=== PATIENT | female | born 1955 | race Caucasian/White ===

== ENCOUNTER 2020-04-01 13:20 | Inpatient (IN) ==
[2020-04-01] MEDS ORDERED: NS 0.9% 1000 ml BAG 1,000 ML IV ONE (14:15)
[2020-04-01 14:41] LABS: ABS Lymphocytes 1.5 10^3/ul (1.0-4.8); ABS Monocytes 0.6 10^3/ul (0-0.8); ABS Neutrophils 7.1 10^3/ul (1.5-7.7); Eosinophil % 0.3 %; Hematocrit 45 % (35-47); Hemoglobin 14.9 g/dL (12.0-16.0); Mean Corpuscular HGB Conc 33 g/dL (31-36); Mean Corpuscular Hemoglobin 29 pg (27-31); Mean Corpuscular Volume 87 fL (80-97); Mean Platelet Volume 7.4 fL (7.4-10.4); Platelet Count 357 10^3/uL (150-450); Red Cell Distribution Width 14 % (10-15); White Blood Count 9.2 10^3/uL (3.5-10.8)
[2020-04-01 15:00] LABS: Albumin 4.2 g/dL (3.2-5.2); Albumin/Globulin Ratio 1.3 (1-3); BUN/Creatinine Ratio 20.8 (8-20); Calcium 9.5 mg/dL (8.6-10.3); EGFR African American 70.4 (>60); EGFR Non-African American 58.1 (>60); Globulin 3.2 g/dL (2-4); Potassium 4.4 mmol/L (3.5-5.0); Total Bilirubin 0.4 mg/dL (0.2-1.0); Total Protein 7.4 g/dL (6.4-8.9)
[2020-04-01 15:01] LABS: Troponin I 0.01 ng/mL (<0.03)
[2020-04-01] MEDS ORDERED: Dexamethasone IV 4 MG/ML 5 ML VIAL (20 MG) IVPB ONE (15:29)
[2020-04-01 15:31] LABS: TSH Ultra Thyroid Stim Horm 1.95 mcIU/mL (0.34-5.60)
[2020-04-01 15:53] LABS: Activated Partial Thrombo Time 26.2 seconds (26.0-38.0); INR 1.07 (0.82-1.09)
[2020-04-01] MEDS ORDERED: levETIRAcetam 1000MG IVPREMIX 1,000 MG/100 ML BAG IVPB ONE (15:55)
[2020-04-01] MEDS ORDERED: Iodixanol (CONTRAST) 320 MG/ML 100 ML SDV IV ONE (21:29)
[2020-04-01] MEDS ORDERED: Gadoteridol (CONTRAST) 279.3 MG/ML 10 ML IV ONE (21:35)
[2020-04-02] MEDS: Dexamethasone IV 4 MG/ML VIAL 1 ml VIAL IV SLOW PU SCH ×5 (01:05→21:06)
[2020-04-02 03:50] LABS: Urine Appearance Clear; Urine Bilirubin Negative (Negative); Urine Blood 1+ (Negative); Urine Color Yellow; Urine Glucose 3+(>=500 mg/dL) (Negative); Urine Ketones Trace (Negative); Urine Nitrite Negative (Negative); Urine Protein Negative (Negative); Urine Specific Gravity 1.024 (1.010-1.030); Urine Urobilinogen Negative (Negative)
[2020-04-02 04:07] LABS: Urine Bacteria Absent (Absent); Urine Red Blood Cell Trace(0-2/hpf) (Absent); Urine Squamous Epithelial Cell Present (Absent); Urine White Blood Cell Absent (Absent)
[2020-04-02 04:40] LABS: BUN/Creatinine Ratio 18.9 (8-20); Calcium 9.2 mg/dL (8.6-10.3); EGFR Non-African American 78.5 (>60); Potassium 4.3 mmol/L (3.5-5.0)
[2020-04-02] MEDS: NS 0.9% 1000 ml BAG 1,000 ML IV SCH ×2 (05:45→18:44)
[2020-04-02] MEDS: Famotidine IV 10 MG/ML 2 ml VIAL (20 mg) IV SLOW PU SCH ×2 (07:54→21:07)
[2020-04-02] MEDS: levETIRAcetam 500 MG IVPREMIX 500 MG/100 ML BAG IV SCH ×2 (07:54→21:06)
[2020-04-02] MEDS ORDERED: Insulin GLARGINE 100 un/ml 10 ml VIAL SUBCUT SCH (16:00)
[2020-04-02] MEDS ORDERED: Magnesium Sulfate 2 gm BAG 2 GM/50 ML BAG IVPB ONE (16:02)
[2020-04-02] MEDS: hydrALAZINE 20 mg/ml 1 ML Vial IV IV SLOW PU PRN ×2 (17:20→20:02)
[2020-04-03] MEDS: Dexamethasone IV 4 MG/ML VIAL 1 ml VIAL IV SLOW PU SCH ×4 (03:25→21:14)
[2020-04-03] MEDS: hydrALAZINE 20 mg/ml 1 ML Vial IV IV SLOW PU PRN ×3 (03:25→22:09)
[2020-04-03 05:33] LABS: BUN/Creatinine Ratio 25.3 (8-20); Calcium 8.8 mg/dL (8.6-10.3); EGFR African American 83.2 (>60); EGFR Non-African American 68.8 (>60); Potassium 4.3 mmol/L (3.5-5.0)
[2020-04-03] MEDS: NS 0.9% 1000 ml BAG 1,000 ML IV SCH ×2 (06:20→20:48)
[2020-04-03] MEDS: levETIRAcetam 500 MG IVPREMIX 500 MG/100 ML BAG IV SCH (09:03)
[2020-04-03] MEDS: Famotidine IV 10 MG/ML 2 ml VIAL (20 mg) IV SLOW PU SCH ×2 (09:04→21:06)
[2020-04-03] MEDS: Insulin GLARGINE 100 un/ml 10 ml VIAL SUBCUT SCH (09:04)
[2020-04-03] MEDS ORDERED: Gadoteridol (CONTRAST) 279.3 MG/ML 10 ML IV ONE (18:15)
[2020-04-04] MEDS: Dexamethasone IV 4 MG/ML VIAL 1 ml VIAL IV SLOW PU SCH ×4 (04:23→23:39)
[2020-04-04 04:38] LABS: ABS Lymphocytes 1.4 10^3/ul (1.0-4.8); ABS Monocytes 0.4 10^3/ul (0-0.8); ABS Neutrophils 11.9 10^3/ul (1.5-7.7); Hematocrit 37 % (35-47); Hemoglobin 12.4 g/dL (12.0-16.0); Lymphocyte % 10.2 %; Mean Corpuscular HGB Conc 33 g/dL (31-36); Mean Corpuscular Hemoglobin 29 pg (27-31); Mean Corpuscular Volume 87 fL (80-97); Mean Platelet Volume 7.9 fL (7.4-10.4); Nucleated Red Blood Cells % 0.1; Platelet Count 326 10^3/uL (150-450); Red Blood Count 4.32 10^6 /uL (3.70-4.87); Red Cell Distribution Width 15 % (10-15); White Blood Count 13.7 10^3/uL (3.5-10.8)
[2020-04-04 04:43] LABS: INR 1.06 (0.82-1.09)
[2020-04-04 04:57] LABS: Albumin 3.3 g/dL (3.2-5.2); Albumin/Globulin Ratio 1.4 (1-3); BUN/Creatinine Ratio 23.3 (8-20); Calcium 8.3 mg/dL (8.6-10.3); EGFR African American 75.8 (>60); EGFR Non-African American 62.6 (>60); Globulin 2.4 g/dL (2-4); Magnesium 2.1 mg/dL (1.9-2.7); Phosphorus 3.7 mg/dL (2.5-5.0); Potassium 4.3 mmol/L (3.5-5.0); Total Bilirubin 0.4 mg/dL (0.2-1.0); Total Protein 5.7 g/dL (6.4-8.9)
[2020-04-04] MEDS ORDERED: Buffered Lidocaine 1% SYRIN 1 ml INTRADERM ONE (06:00)
[2020-04-04] MEDS: Lactated Ringers 1000 ml BAG 1,000 ML IV SCH ×2 (06:01→13:49)
[2020-04-04] MEDS: Famotidine IV 10 MG/ML 2 ml VIAL (20 mg) IV SLOW PU SCH ×2 (08:56→23:39)
[2020-04-04] MEDS: Insulin GLARGINE 100 un/ml 10 ml VIAL SUBCUT SCH (09:25)
[2020-04-04] MEDS: hydrALAZINE 20 mg/ml 1 ML Vial IV IV SLOW PU PRN ×4 (12:07→22:09)
[2020-04-04] MEDS ORDERED: fentaNYL 250 mcg/5 ml 50 MCG/ML 5 ml VIAL (250 MCG) ONE (13:17)
[2020-04-04] MEDS ORDERED: Lidocaine 2% PF 5 ML VIAL ONE (13:17)
[2020-04-04] MEDS ORDERED: Rocuronium 50 mg VIAL 10 mg/ml 5 ml VIAL (50 mg) ONE (13:17)
[2020-04-04] MEDS ORDERED: Midazolam 5 mg/5 ml VIAL 1 mg/ml 5 ml VIAL (5 mg) ONE (13:17)
[2020-04-04] MEDS ORDERED: Etomidate 20 mg/10 ml 2 MG/ML 10 ml VIAL ONE (13:18)
[2020-04-04] MEDS ORDERED: Bacitracin OINTMENT TUBE ONE (14:43)
[2020-04-04] MEDS ORDERED: Thrombin 5,000 UNITS 1 APPLIC KIT - topical use - TOPICAL ONE (14:43)
[2020-04-04] MEDS ORDERED: Bacitracin INJECTION 50,000 UNITS ONE ×3 (14:43→19:14)
[2020-04-04] MEDS ORDERED: Lidocaine 1% w EPI 1:200,000 SDV 30 ML VIAL ONE (14:43)
[2020-04-04] MEDS ORDERED: Lidocaine 1% w EPI 1:100,000 MDV 20 ML VIAL ONE (14:44)
[2020-04-04] MEDS ORDERED: Vancomycin 1000 MG in NS 0.9% 250 ML IVPB ONE (15:00)
[2020-04-04] MEDS ORDERED: Mannitol 25% (12.5 GM) 50 ML 12.5 GM/50 ML VIAL IV PRN (15:22)
[2020-04-04] MEDS ORDERED: Gelfoam Sponge SIZE 100 SPONGE ONE (15:46)
[2020-04-04] MEDS ORDERED: [UNRECOGNIZED DRUG - OTHER] IV SCH (16:00)
[2020-04-04] MEDS ORDERED: NICARDIPINE 20 MG/200 ML IV SCH (16:00)
[2020-04-04] MEDS ORDERED: Dexamethasone IV 4 MG/ML VIAL 1 ml VIAL ONE (16:31)
[2020-04-04] MEDS ORDERED: Glycopyrrolate IV 0.2 MG/ML 1 ML VIAL ONE (16:55)
[2020-04-04] MEDS ORDERED: Propofol 10 mg/ml 100 ML BTL 100 ML ONE (17:00)
[2020-04-04] MEDS ORDERED: levETIRAcetam 1000MG IVPREMIX 1,000 MG/100 ML BAG IVPB ONE (17:00)
[2020-04-04] MEDS ORDERED: Remifentanil 2 MG VIAL ONE (17:08)
[2020-04-04 18:55] LABS: ABS Lymphocytes 1.2 10^3/ul (1.0-4.8); ABS Monocytes 0.6 10^3/ul (0-0.8); ABS Neutrophils 8.7 10^3/ul (1.5-7.7); Hematocrit 37 % (35-47); Hemoglobin 12.5 g/dL (12.0-16.0); Lymphocyte % 11.8 %; Mean Corpuscular HGB Conc 34 g/dL (31-36); Mean Corpuscular Hemoglobin 29 pg (27-31); Mean Corpuscular Volume 86 fL (80-97); Mean Platelet Volume 8.3 fL (7.4-10.4); Platelet Count 333 10^3/uL (150-450); Red Cell Distribution Width 14 % (10-15); White Blood Count 10.5 10^3/uL (3.5-10.8)
[2020-04-04] MEDS ORDERED: Phenylephrine IV 10 MG/ML 1 ml VIAL ONE (19:07)
[2020-04-04] MEDS ORDERED: Phenylephrine 40 mcg/mL 10mL (400mcg) SYRINGE ONE (19:07)
[2020-04-04 19:10] LABS: BUN/Creatinine Ratio 25.3 (8-20); Calcium 8.1 mg/dL (8.6-10.3); EGFR African American 83.2 (>60); EGFR Non-African American 68.8 (>60); Potassium 4.1 mmol/L (3.5-5.0)
[2020-04-04] MEDS ORDERED: Propofol 10 MG/ML 20 ML BTL ONE (19:22)
[2020-04-04] MEDS ORDERED: oxyCODONE/Acetamin 5/325 mg TAB PO PRN (19:58)
[2020-04-04] MEDS ORDERED: fentaNYL 100 mcg/2 ml 50 MCG/ML VIAL IV PRN ×2 (19:58→21:53)
[2020-04-04] MEDS ORDERED: Naloxone 0.4 mg VIAL 0.4 mg/ml 1 ml VIAL IV PRN ×2 (19:58→21:53)
[2020-04-04] MEDS ORDERED: Ondansetron 4 mg VIAL 2 MG/ML 2 ml VIAL IV PRN ×2 (19:58→21:53)
[2020-04-04] MEDS ORDERED: DiMENhydriNATE IV 50 mg/ml 1 ml VIAL IV PUSH PRN ×2 (19:58→21:53)
[2020-04-04] MEDS ORDERED: fentaNYL 100 mcg/2 ml 50 MCG/ML VIAL ONE ×2 (20:35→22:02)
[2020-04-04] MEDS ORDERED: hydrALAZINE 20 mg/ml 1 ML Vial IV ONE (21:43)
[2020-04-04] MEDS: niCARdipine 0.1MG/ML IVPREMIX 20 MG/200 ML BAG IV SCH (23:33)
[2020-04-05] MEDS: niCARdipine 0.1MG/ML IVPREMIX 20 MG/200 ML BAG IV SCH ×11 (01:12→22:54)
[2020-04-05] MEDS: NS 0.9% 1000 ml BAG 1,000 ML IV SCH (01:40)
[2020-04-05] MEDS: Dexamethasone IV 4 MG/ML VIAL 1 ml VIAL IV SLOW PU SCH ×4 (03:56→22:08)
[2020-04-05] MEDS ORDERED: HYDROmorphone 0.5 MG/0.5 ML SYRINGE IV ONE (04:04)
[2020-04-05 04:22] LABS: ABS Lymphocytes 1.1 10^3/ul (1.0-4.8); ABS Monocytes 1.3 10^3/ul (0-0.8); ABS Neutrophils 15.6 10^3/ul (1.5-7.7); Eosinophil % 0.1 %; Hematocrit 39 % (35-47); Hemoglobin 13.1 g/dL (12.0-16.0); Lymphocyte % 6.2 %; Mean Corpuscular HGB Conc 33 g/dL (31-36); Mean Corpuscular Hemoglobin 29 pg (27-31); Mean Corpuscular Volume 86 fL (80-97); Nucleated Red Blood Cells % 0.1; Platelet Count 326 10^3/uL (150-450); Red Blood Count 4.56 10^6 /uL (3.70-4.87); Red Cell Distribution Width 15 % (10-15); White Blood Count 18.1 10^3/uL (3.5-10.8)
[2020-04-05 04:39] LABS: BUN/Creatinine Ratio 30.1 (8-20); Calcium 8.2 mg/dL (8.6-10.3); EGFR African American 83.2 (>60); EGFR Non-African American 68.8 (>60); Magnesium 1.9 mg/dL (1.9-2.7); Phosphorus 4.4 mg/dL (2.5-5.0); Potassium 3.7 mmol/L (3.5-5.0)
[2020-04-05] MEDS: Insulin GLARGINE 100 un/ml 10 ml VIAL SUBCUT SCH ×2 (07:59→12:13)
[2020-04-05] MEDS: levETIRAcetam 500 MG IVPREMIX 500 MG/100 ML BAG IV SCH ×3 (08:03→20:45)
[2020-04-05] MEDS: Famotidine IV 10 MG/ML 2 ml VIAL (20 mg) IV SLOW PU SCH ×2 (08:03→19:58)
[2020-04-05] MEDS ORDERED: Gadoteridol (CONTRAST) 279.3 MG/ML 10 ML IV ONE (14:24)
[2020-04-06] MEDS ORDERED: Dextrose 50% Syringe 50 ml 25 GM/50 ML SYRINGE IV PUSH PRN (00:08)
[2020-04-06] MEDS: niCARdipine 0.1MG/ML IVPREMIX 20 MG/200 ML BAG IV SCH ×5 (01:31→12:43)
[2020-04-06] MEDS: Dexamethasone IV 4 MG/ML VIAL 1 ml VIAL IV SLOW PU SCH ×4 (03:42→23:24)
[2020-04-06 04:52] LABS: ABS Monocytes 0.6 10^3/ul (0-0.8); ABS Neutrophils 10.6 10^3/ul (1.5-7.7); Eosinophil % 0.1 %; Hematocrit 39 % (35-47); Hemoglobin 12.5 g/dL (12.0-16.0); Lymphocyte % 8.1 %; Mean Corpuscular HGB Conc 32 g/dL (31-36); Mean Corpuscular Hemoglobin 29 pg (27-31); Mean Corpuscular Volume 90 fL (80-97); Mean Platelet Volume 8.3 fL (7.4-10.4); Platelet Count 192 10^3/uL (150-450); Red Blood Count 4.31 10^6 /uL (3.70-4.87); Red Cell Distribution Width 15 % (10-15); White Blood Count 12.3 10^3/uL (3.5-10.8)
[2020-04-06 05:10] LABS: Calcium 7.8 mg/dL (8.6-10.3)
[2020-04-06 05:15] LABS: BUN/Creatinine Ratio 32.9 (8-20); EGFR Non-African American 66.9 (>60)
[2020-04-06 05:23] LABS: Potassium 4.2 mmol/L (3.5-5.0)
[2020-04-06 06:56] LABS: Nucleated Red Blood Cells % 0.2
[2020-04-06] MEDS: levETIRAcetam 500 MG IVPREMIX 500 MG/100 ML BAG IV SCH ×2 (09:39→20:44)
[2020-04-06] MEDS: Famotidine IV 10 MG/ML 2 ml VIAL (20 mg) IV SLOW PU SCH ×2 (09:39→20:43)
[2020-04-06] MEDS: Insulin GLARGINE 100 un/ml 10 ml VIAL SUBCUT SCH (09:39)
[2020-04-06] MEDS: hydrALAZINE 20 mg/ml 1 ML Vial IV IV SLOW PU PRN ×2 (18:35→21:49)
[2020-04-06] MEDS ORDERED: Sodium Bicarbonate 8.4% VIAL 1 MEQ/ML 50 ml VIAL (50 meq) IV ONE (18:44)
[2020-04-06] MEDS ORDERED: niCARdipine 0.1MG/ML IVPREMIX 0 MG/0 ML BAG IV ONE (20:22)
[2020-04-07] MEDS: Ondansetron 4 mg VIAL 2 MG/ML 2 ml VIAL IV PRN ×3 (02:07→20:25)
[2020-04-07] MEDS: hydrALAZINE 20 mg/ml 1 ML Vial IV IV SLOW PU PRN ×4 (02:52→15:46)
[2020-04-07] MEDS ORDERED: Prochlorperazine 5 mg/ml 2 ml VIAL (10 mg) IV ONE (04:26)
[2020-04-07 05:56] LABS: Hematocrit 35 % (35-47); Hemoglobin 11.6 g/dL (12.0-16.0); Mean Corpuscular HGB Conc 33 g/dL (31-36); Mean Corpuscular Hemoglobin 29 pg (27-31); Mean Corpuscular Volume 87 fL (80-97); Mean Platelet Volume 8.7 fL (7.4-10.4); Platelet Count 228 10^3/uL (150-450); Red Blood Count 4.06 10^6 /uL (3.70-4.87); Red Cell Distribution Width 15 % (10-15); White Blood Count 16.7 10^3/uL (3.5-10.8)
[2020-04-07 06:02] LABS: BUN/Creatinine Ratio 37.8 (8-20); Blood Urea Nitrogen 28 mg/dL (6-24); CO2 Carbon Dioxide 21 mmol/L (22-32); Calcium 7.8 mg/dL (8.6-10.3); Chloride 107 mmol/L (101-111); EGFR Non-African American 78.5 (>60); Glucose 192 mg/dL (70-100); Magnesium 2.3 mg/dL (1.9-2.7); Sodium 135 mmol/L (135-145)
[2020-04-07 06:15] LABS: Anion Gap 7 mmol/L (2-11)
[2020-04-07 06:19] LABS: ABS Lymphocytes 0.9 10^3/ul (1.0-4.8); ABS Monocytes 0.9 10^3/ul (0-0.8); ABS Neutrophils 14.8 10^3/ul (1.5-7.7); Lymphocyte % 5.7 %
[2020-04-07] MEDS: niCARdipine 0.1MG/ML IVPREMIX 20 MG/200 ML BAG IV SCH ×11 (07:59→23:29)
[2020-04-07] MEDS: Insulin GLARGINE 100 un/ml 10 ml VIAL SUBCUT SCH (08:58)
[2020-04-07] MEDS: Dexamethasone IV 4 MG/ML VIAL 1 ml VIAL IV SLOW PU SCH ×3 (08:59→16:36)
[2020-04-07] MEDS: Metoclopramide 5 MG/ML VIAL (10 mg) IV SLOW PU SCH ×2 (09:00→16:36)
[2020-04-07] MEDS: Famotidine IV 10 MG/ML 2 ml VIAL (20 mg) IV SLOW PU SCH ×2 (09:01→20:23)
[2020-04-07] MEDS: levETIRAcetam 500 MG IVPREMIX 500 MG/100 ML BAG IV SCH ×2 (09:37→20:23)
[2020-04-07] MEDS ORDERED: Buffered Lidocaine 1% SYRIN 1 ml INTRADERM ONE (12:14)
[2020-04-07] MEDS ORDERED: NS 0.9% 1000 ml BAG 1,000 ML IV SCH (13:15)
[2020-04-07] MEDS ORDERED: Iodixanol (CONTRAST) 320 MG/ML 100 ML SDV IV ONE (21:04)
[2020-04-07] MEDS ORDERED: Vancomycin 1,000 MG in NS 0.9% 250 ml 250 ML IVPB ONE (22:10)
[2020-04-07] MEDS ORDERED: Vancomycin per Pharmacy 1 EA NOTE FOLLOW UP SCH (23:00)
[2020-04-07] MEDS ORDERED: Meropenem 1 GM PREMIX(*) 1 GM/50 ML BAG IV SCH (23:00)
[2020-04-08] MEDS ORDERED: Morphine 2 MG/ML SYRINGE IV ONE (00:32)
[2020-04-08] MEDS: niCARdipine 0.1MG/ML IVPREMIX 20 MG/200 ML BAG IV SCH ×6 (00:51→07:52)
[2020-04-08] MEDS: Dexamethasone IV 4 MG/ML VIAL 1 ml VIAL IV SLOW PU SCH ×4 (02:06→21:23)
[2020-04-08] MEDS: Meropenem 1 GM PREMIX(*) 1 GM/50 ML BAG IV SCH ×3 (02:07→16:49)
[2020-04-08] MEDS: Metoclopramide 5 MG/ML VIAL (10 mg) IV SLOW PU SCH ×3 (02:07→16:43)
[2020-04-08] MEDS: Ondansetron 4 mg VIAL 2 MG/ML 2 ml VIAL IV PRN ×2 (02:46→07:57)
[2020-04-08 05:21] LABS: Hematocrit 34 % (35-47); Mean Corpuscular HGB Conc 33 g/dL (31-36); Mean Corpuscular Hemoglobin 29 pg (27-31); Mean Corpuscular Volume 87 fL (80-97); Mean Platelet Volume 8.9 fL (7.4-10.4); Platelet Count 201 10^3/uL (150-450); Red Blood Count 3.85 10^6 /uL (3.70-4.87); Red Cell Distribution Width 15 % (10-15); White Blood Count 27.2 10^3/uL (3.5-10.8)
[2020-04-08 05:43] LABS: Calcium 7.4 mg/dL (8.6-10.3); Potassium 3.2 mmol/L (3.5-5.0)
[2020-04-08 05:48] LABS: BUN/Creatinine Ratio 34.7 (8-20); EGFR African American 98.1 (>60)
[2020-04-08] MEDS ORDERED: Potassium Chlor 20 meq TAB.ER PO ONE (07:26)
[2020-04-08] MEDS: Insulin GLARGINE 100 un/ml 10 ml VIAL SUBCUT SCH (08:12)
[2020-04-08] MEDS: levETIRAcetam 500 MG IVPREMIX 500 MG/100 ML BAG IV SCH ×2 (08:16→21:24)
[2020-04-08] MEDS: Polyethylene Glycol 3350 17 GM PACKET PO SCH (10:00)
[2020-04-08] MEDS: KCL 20 MEQ/100 ML IVPREMIX 20 MEQ/100 ML BAG IV SCH ×2 (10:00→13:11)
[2020-04-08] MEDS ORDERED: Furosemide 20 mg/2 ml IV VIAL IV SLOW PU ONE (10:21)
[2020-04-08] MEDS ORDERED: fentaNYL 100 mcg/2 ml 50 MCG/ML VIAL IV SLOW PU ONE (10:28)
[2020-04-08] MEDS: Vancomycin 1000 MG in NS 0.9% 250 ML IVPB SCH ×2 (11:23→23:01)
[2020-04-09] MEDS: Meropenem 1 GM PREMIX(*) 1 GM/50 ML BAG IV SCH ×4 (01:13→23:37)
[2020-04-09] MEDS ORDERED: hydrALAZINE 20 mg/ml 1 ML Vial IV IV SLOW PU ONE (01:44)
[2020-04-09] MEDS: Saline FLUSH-CENTRAL 10 ML SYRINGE CENT\\PICC SCH ×2 (02:07→12:32)
[2020-04-09 05:37] LABS: Hematocrit 36 % (35-47); Hemoglobin 11.9 g/dL (12.0-16.0); Mean Corpuscular HGB Conc 33 g/dL (31-36); Mean Corpuscular Hemoglobin 29 pg (27-31); Mean Corpuscular Volume 87 fL (80-97); Mean Platelet Volume 8.8 fL (7.4-10.4); Platelet Count 168 10^3/uL (150-450); Red Blood Count 4.12 10^6 /uL (3.70-4.87); Red Cell Distribution Width 15 % (10-15)
[2020-04-09 05:52] LABS: BUN/Creatinine Ratio 26.4 (8-20); EGFR African American 98.1 (>60); Potassium 3.8 mmol/L (3.5-5.0)
[2020-04-09 06:05] LABS: ABS Monocytes 1.7 10^3/ul (0-0.8); ABS Neutrophils 23.3 10^3/ul (1.5-7.7); Lymphocyte % 3.8 %; Nucleated Red Blood Cells % 0.1
[2020-04-09] MEDS ORDERED: Labetalol IV 5 MG/ML 20 ml VIAL ONE (07:54)
[2020-04-09] MEDS ORDERED: Labetalol IV 5 MG/ML 20 ml VIAL IV PUSH PRN (08:12)
[2020-04-09] MEDS ORDERED: Furosemide 20 mg/2 ml IV VIAL IV SLOW PU ONE ×2 (08:29→17:59)
[2020-04-09] MEDS: Insulin GLARGINE 100 un/ml 10 ml VIAL SUBCUT SCH (08:38)
[2020-04-09] MEDS: Dexamethasone IV 4 MG/ML VIAL 1 ml VIAL IV SLOW PU SCH (08:38)
[2020-04-09 08:52] LABS: Urine Appearance Clear; Urine Bilirubin Negative (Negative); Urine Blood 1+ (Negative); Urine Color Yellow; Urine Glucose 2+(150 mg/dL) (Negative); Urine Ketones Trace (Negative); Urine Nitrite Negative (Negative); Urine Protein Negative (Negative); Urine Specific Gravity 1.015 (1.010-1.030); Urine Urobilinogen Negative (Negative)
[2020-04-09 09:00] LABS: Urine Bacteria Absent (Absent); Urine Red Blood Cell Trace(0-2/hpf) (Absent); Urine White Blood Cell Trace(0-5/hpf) (Absent)
[2020-04-09 09:01] LABS: Magnesium 2.2 mg/dL (1.9-2.7); Phosphorus 2.7 mg/dL (2.5-5.0)
[2020-04-09] MEDS: Polyethylene Glycol 3350 17 GM PACKET PO SCH (09:06)
[2020-04-09] MEDS: Magnesium Hydroxide LIQ 30 ML UDC PO SCH ×4 (09:06→19:55)
[2020-04-09] MEDS ORDERED: Vancomycin Trough Check NOTE FOLLOW UP ONE (10:30)
[2020-04-09] MEDS: Vancomycin 1000 MG in NS 0.9% 250 ML IVPB SCH (11:44)
[2020-04-09 16:27] LABS: BUN/Creatinine Ratio 28.8 (8-20); Calcium 8.1 mg/dL (8.6-10.3); EGFR African American 96.5 (>60); EGFR Non-African American 79.8 (>60); Magnesium 2.4 mg/dL (1.9-2.7)
[2020-04-10] MEDS: Magnesium Hydroxide LIQ 30 ML UDC PO SCH ×6 (00:17→21:15)
[2020-04-10] MEDS: Saline FLUSH-CENTRAL 10 ML SYRINGE CENT\\PICC SCH ×2 (00:33→12:26)
[2020-04-10 04:19] LABS: Hematocrit 36 % (35-47); Mean Corpuscular HGB Conc 33 g/dL (31-36); Mean Corpuscular Hemoglobin 29 pg (27-31); Mean Corpuscular Volume 86 fL (80-97); Red Blood Count 4.22 10^6 /uL (3.70-4.87); Red Cell Distribution Width 15 % (10-15); White Blood Count 15.7 10^3/uL (3.5-10.8)
[2020-04-10 04:29] LABS: EGFR African American 82.1 (>60); EGFR Non-African American 67.8 (>60); Potassium 4.2 mmol/L (3.5-5.0)
[2020-04-10] MEDS ORDERED: Labetalol IV 5 MG/ML 20 ml VIAL IV PUSH PRN (04:47)
[2020-04-10 05:01] LABS: Mean Platelet Volume 8.9 fL (7.4-10.4); Platelet Count 145 10^3/uL (150-450)
[2020-04-10] MEDS: Polyethylene Glycol 3350 17 GM PACKET PO SCH (08:54)
[2020-04-10] MEDS: Insulin GLARGINE 100 un/ml 10 ml VIAL SUBCUT SCH (08:55)
[2020-04-10] MEDS ORDERED: Dexamethasone IV 4 MG/ML VIAL 1 ml VIAL IV SLOW PU SCH (09:00)
[2020-04-10] MEDS: Meropenem 1 GM PREMIX(*) 1 GM/50 ML BAG IV SCH ×2 (09:49→17:32)
[2020-04-10] MEDS ORDERED: levETIRAcetam 500 MG IVPREMIX 500 MG/100 ML BAG IV SCH (10:00)
[2020-04-10] MEDS ORDERED: levETIRAcetam 500 MG/100 ML IV ONE (10:30)
[2020-04-10] MEDS: Dexamethasone IV 4 MG/ML VIAL 1 ml VIAL IV SLOW PU SCH (17:32)
[2020-04-10] MEDS: levETIRAcetam 500 MG IVPREMIX 500 MG/100 ML BAG IV SCH (21:14)
[2020-04-11] MEDS: Magnesium Hydroxide LIQ 30 ML UDC PO SCH ×7 (01:01→22:22)
[2020-04-11] MEDS: Dexamethasone IV 4 MG/ML VIAL 1 ml VIAL IV SLOW PU SCH ×3 (01:02→18:17)
[2020-04-11] MEDS: Meropenem 1 GM PREMIX(*) 1 GM/50 ML BAG IV SCH ×2 (01:02→09:23)
[2020-04-11] MEDS: Saline FLUSH-CENTRAL 10 ML SYRINGE CENT\\PICC SCH ×2 (01:03→13:25)
[2020-04-11] MEDS ORDERED: hydrALAZINE 20 mg/ml 1 ML Vial IV IV SLOW PU ONE (04:33)
[2020-04-11 05:45] LABS: Hematocrit 35 % (35-47); Hemoglobin 11.6 g/dL (12.0-16.0); Mean Corpuscular HGB Conc 34 g/dL (31-36); Mean Corpuscular Hemoglobin 29 pg (27-31); Mean Corpuscular Volume 86 fL (80-97); Mean Platelet Volume 8.5 fL (7.4-10.4); Platelet Count 191 10^3/uL (150-450); Red Blood Count 4.01 10^6 /uL (3.70-4.87); Red Cell Distribution Width 15 % (10-15); White Blood Count 13.4 10^3/uL (3.5-10.8)
[2020-04-11 06:19] LABS: BUN/Creatinine Ratio 41.7 (8-20); Calcium 7.8 mg/dL (8.6-10.3); EGFR African American 98.1 (>60); Potassium 4.8 mmol/L (3.5-5.0)
[2020-04-11] MEDS: Insulin GLARGINE 100 un/ml 10 ml VIAL SUBCUT SCH (09:08)
[2020-04-11] MEDS: Polyethylene Glycol 3350 17 GM PACKET PO SCH (09:26)
[2020-04-11] MEDS: levETIRAcetam 500 MG IVPREMIX 500 MG/100 ML BAG IV SCH ×2 (10:48→22:15)
[2020-04-11] MEDS: cefTRIAXone 1 gm/50 mL NS BAG 1 GM/50 ML BAG IVPB SCH (11:40)
[2020-04-12] MEDS: Magnesium Hydroxide LIQ 30 ML UDC PO SCH ×6 (01:33→19:41)
[2020-04-12] MEDS: Dexamethasone IV 4 MG/ML VIAL 1 ml VIAL IV SLOW PU SCH ×3 (01:33→17:49)
[2020-04-12] MEDS: Saline FLUSH-CENTRAL 10 ML SYRINGE CENT\\PICC SCH ×2 (01:36→14:18)
[2020-04-12 06:30] LABS: BUN/Creatinine Ratio 47.8 (8-20); Calcium 7.8 mg/dL (8.6-10.3); EGFR African American 106.6 (>60); EGFR Non-African American 88.1 (>60); Potassium 4.7 mmol/L (3.5-5.0)
[2020-04-12] MEDS: Polyethylene Glycol 3350 17 GM PACKET PO SCH (08:17)
[2020-04-12] MEDS: Ondansetron 4 mg VIAL 2 MG/ML 2 ml VIAL IV PRN ×2 (09:53→21:08)
[2020-04-12] MEDS: cefTRIAXone 1 gm/50 mL NS BAG 1 GM/50 ML BAG IVPB SCH (10:27)
[2020-04-12] MEDS: Insulin GLARGINE 100 un/ml 10 ml VIAL SUBCUT SCH (10:27)
[2020-04-13] MEDS: Dexamethasone IV 4 MG/ML VIAL 1 ml VIAL IV SLOW PU SCH ×2 (01:26→13:12)
[2020-04-13] MEDS: Magnesium Hydroxide LIQ 30 ML UDC PO SCH ×6 (01:26→21:01)
[2020-04-13] MEDS: Saline FLUSH-CENTRAL 10 ML SYRINGE CENT\\PICC SCH ×2 (01:29→13:06)
[2020-04-13 05:43] LABS: CO2 Carbon Dioxide 22 mmol/L (22-32); Chloride 105 mmol/L (101-111); Sodium 136 mmol/L (135-145)
[2020-04-13 05:44] LABS: Anion Gap 9 mmol/L (2-11)
[2020-04-13 05:49] LABS: BUN/Creatinine Ratio 45.9 (8-20); Blood Urea Nitrogen 34 mg/dL (6-24); EGFR Non-African American 78.5 (>60); Glucose 121 mg/dL (70-100)
[2020-04-13 07:33] LABS: Potassium Redraw 4.7 mmol/L (3.5-5.0)
[2020-04-13] MEDS: Polyethylene Glycol 3350 17 GM PACKET PO SCH (09:37)
[2020-04-13] MEDS: Insulin GLARGINE 100 un/ml 10 ml VIAL SUBCUT SCH (09:45)
[2020-04-13] MEDS ORDERED: NS 0.9% 500 ml BAG 500 ML IV SCH (10:00)
[2020-04-13 10:12] LABS: Hematocrit 31 % (35-47); Hemoglobin 10.4 g/dL (12.0-16.0); Mean Corpuscular HGB Conc 33 g/dL (31-36); Mean Corpuscular Hemoglobin 29 pg (27-31); Mean Corpuscular Volume 86 fL (80-97); Mean Platelet Volume 8.5 fL (7.4-10.4); Platelet Count 209 10^3/uL (150-450); Red Blood Count 3.61 10^6 /uL (3.70-4.87); Red Cell Distribution Width 15 % (10-15); White Blood Count 13.1 10^3/uL (3.5-10.8)
[2020-04-13 10:29] LABS: ABS Lymphocytes 0.6 10^3/ul (1.0-4.8); ABS Monocytes 1.4 10^3/ul (0-0.8); ABS Neutrophils 11.2 10^3/ul (1.5-7.7); Lymphocyte % 4.2 %
[2020-04-13] MEDS ORDERED: NS 0.9% 1000 ml BAG 1,000 ML IV SCH (10:30)
[2020-04-13] MEDS ORDERED: NS 0.9% 500 ml BAG 500 ML IV ONE ×2 (11:00→16:53)
[2020-04-13] MEDS: cefTRIAXone 1 gm/50 mL NS BAG 1 GM/50 ML BAG IVPB SCH (11:02)
[2020-04-13 12:09] LABS: Troponin I 0.05 ng/mL (<0.03)
[2020-04-13 13:09] LABS: Troponin I 0.04 ng/mL (<0.03)
[2020-04-13 15:16] LABS: Urine Appearance Clear; Urine Bilirubin Negative (Negative); Urine Blood 1+ (Negative); Urine Color Yellow; Urine Glucose Negative (Negative); Urine Ketones Trace (Negative); Urine Nitrite Negative (Negative); Urine Protein Negative (Negative); Urine Specific Gravity 1.021 (1.010-1.030); Urine Urobilinogen Negative (Negative)
[2020-04-13 15:22] LABS: Urine Bacteria Absent (Absent); Urine Red Blood Cell Trace(0-2/hpf) (Absent); Urine White Blood Cell Absent (Absent)
[2020-04-13] MEDS ORDERED: hydrALAZINE 20 mg/ml 1 ML Vial IV IV SLOW PU PRN ×2 (22:06→22:08)
[2020-04-14] MEDS: Dexamethasone IV 4 MG/ML VIAL 1 ml VIAL IV SLOW PU SCH (01:28)
[2020-04-14] MEDS: Magnesium Hydroxide LIQ 30 ML UDC PO SCH ×6 (01:29→22:00)
[2020-04-14] MEDS: Saline FLUSH-CENTRAL 10 ML SYRINGE CENT\\PICC SCH ×2 (01:29→13:48)
[2020-04-14] MEDS: Polyethylene Glycol 3350 17 GM PACKET PO SCH (08:15)
[2020-04-14 08:51] LABS: Hematocrit 33 % (35-47); Mean Corpuscular HGB Conc 33 g/dL (31-36); Mean Corpuscular Hemoglobin 29 pg (27-31); Mean Corpuscular Volume 86 fL (80-97); Mean Platelet Volume 8.3 fL (7.4-10.4); Platelet Count 225 10^3/uL (150-450); Red Blood Count 3.85 10^6 /uL (3.70-4.87); Red Cell Distribution Width 15 % (10-15)
[2020-04-14 09:11] LABS: BUN/Creatinine Ratio 38.9 (8-20); Calcium 7.8 mg/dL (8.6-10.3); EGFR African American 136.7 (>60); Potassium 4.6 mmol/L (3.5-5.0)
[2020-04-14] MEDS: cefTRIAXone 1 gm/50 mL NS BAG 1 GM/50 ML BAG IVPB SCH (10:33)
[2020-04-14] MEDS ORDERED: Iodixanol (CONTRAST) 320 MG/ML 100 ML SDV IV ONE (19:20)
[2020-04-15] MEDS: Magnesium Hydroxide LIQ 30 ML UDC PO SCH ×3 (01:03→08:09)
[2020-04-15] MEDS: Saline FLUSH-CENTRAL 10 ML SYRINGE CENT\\PICC SCH ×2 (02:08→14:47)
[2020-04-15 06:42] LABS: Hematocrit 31 % (35-47); Hemoglobin 10.7 g/dL (12.0-16.0); Mean Corpuscular HGB Conc 34 g/dL (31-36); Mean Corpuscular Hemoglobin 29 pg (27-31); Mean Corpuscular Volume 85 fL (80-97); Mean Platelet Volume 8.2 fL (7.4-10.4); Platelet Count 217 10^3/uL (150-450); Red Blood Count 3.69 10^6 /uL (3.70-4.87); Red Cell Distribution Width 15 % (10-15); White Blood Count 15.6 10^3/uL (3.5-10.8)
[2020-04-15 07:01] LABS: Albumin 2.5 g/dL (3.2-5.2); BUN/Creatinine Ratio 32.7 (8-20); C Reactive Protein 279.45 mg/L (<8.01); Calcium 7.8 mg/dL (8.6-10.3); EGFR African American 142.8 (>60); Globulin 2.5 g/dL (2-4); Potassium 4.3 mmol/L (3.5-5.0); Total Bilirubin 0.7 mg/dL (0.2-1.0)
[2020-04-15] MEDS ORDERED: cefTRIAXone 1 gm/50 mL NS BAG 1 GM/50 ML BAG IVPB SCH (08:00)
[2020-04-15] MEDS ORDERED: metroNIDAZOLE IV 500 MG/100ML 500 MG/100 ML BAG IVPB SCH (08:30)
[2020-04-15] MEDS: Polyethylene Glycol 3350 17 GM PACKET PO SCH (09:16)
[2020-04-16] MEDS: Saline FLUSH-CENTRAL 10 ML SYRINGE CENT\\PICC SCH ×2 (02:18→14:33)
[2020-04-16 07:13] LABS: ABS Eosinophils 0.1 10^3/ul (0-0.6); ABS Lymphocytes 0.6 10^3/ul (1.0-4.8); ABS Monocytes 0.7 10^3/ul (0-0.8); ABS Neutrophils 10.4 10^3/ul (1.5-7.7); Eosinophil % 0.8 %; Hematocrit 31 % (35-47); Hemoglobin 10.5 g/dL (12.0-16.0); Lymphocyte % 5.4 %; Mean Corpuscular HGB Conc 34 g/dL (31-36); Mean Corpuscular Hemoglobin 29 pg (27-31); Mean Corpuscular Volume 86 fL (80-97); Mean Platelet Volume 8.2 fL (7.4-10.4); Platelet Count 227 10^3/uL (150-450); Red Blood Count 3.62 10^6 /uL (3.70-4.87); Red Cell Distribution Width 15 % (10-15); White Blood Count 11.9 10^3/uL (3.5-10.8)
[2020-04-16 07:40] LABS: BUN/Creatinine Ratio 34.7 (8-20); Calcium 7.9 mg/dL (8.6-10.3); EGFR African American 152.9 (>60); EGFR Non-African American 126.4 (>60); Potassium 4.3 mmol/L (3.5-5.0)
[2020-04-16] MEDS: Polyethylene Glycol 3350 17 GM PACKET PO SCH (07:52)
[2020-04-17] MEDS: Saline FLUSH-CENTRAL 10 ML SYRINGE CENT\\PICC SCH ×2 (05:16→13:07)
[2020-04-17] MEDS: Polyethylene Glycol 3350 17 GM PACKET PO SCH (08:51)
[2020-04-18] MEDS: Saline FLUSH-CENTRAL 10 ML SYRINGE CENT\\PICC SCH ×2 (02:42→13:48)
[2020-04-18] MEDS: Polyethylene Glycol 3350 17 GM PACKET PO SCH (09:05)
[2020-04-18] MEDS: Morphine ORAL CONCENTRATE 5 MG/0.25 ML ORAL.SYRIN PO PRN (21:49)
[2020-04-19] MEDS: Saline FLUSH-CENTRAL 10 ML SYRINGE CENT\\PICC SCH ×2 (03:04→13:56)
[2020-04-19] MEDS: Polyethylene Glycol 3350 17 GM PACKET PO SCH (09:20)
[2020-04-19] MEDS: Morphine ORAL CONCENTRATE 5 MG/0.25 ML ORAL.SYRIN PO PRN (22:25)
[2020-04-20] MEDS: Saline FLUSH-CENTRAL 10 ML SYRINGE CENT\\PICC SCH ×2 (01:32→15:06)
[2020-04-20] MEDS: Polyethylene Glycol 3350 17 GM PACKET PO SCH (10:27)
[2020-04-20] MEDS: Morphine ORAL CONCENTRATE 5 MG/0.25 ML ORAL.SYRIN PO PRN (21:43)
[2020-04-21] MEDS: Saline FLUSH-CENTRAL 10 ML SYRINGE CENT\\PICC SCH ×2 (02:00→15:53)
[2020-04-21] MEDS: Polyethylene Glycol 3350 17 GM PACKET PO SCH (10:21)
[2020-04-21] MEDS: Morphine ORAL CONCENTRATE 5 MG/0.25 ML ORAL.SYRIN PO PRN (20:34)
[2020-04-22] MEDS: Saline FLUSH-CENTRAL 10 ML SYRINGE CENT\\PICC SCH ×2 (03:20→13:19)
[2020-04-22] MEDS: Polyethylene Glycol 3350 17 GM PACKET PO SCH (07:32)
[2020-04-23] MEDS: Saline FLUSH-CENTRAL 10 ML SYRINGE CENT\\PICC SCH ×2 (05:02→14:37)
[2020-04-23] MEDS: Polyethylene Glycol 3350 17 GM PACKET PO SCH (07:20)
[2020-04-23 15:59] VITALS: BP 196/78
== END 2020-04-23 16:40 | DRG 25 ==
LOC: ED 13:20 → ICU 15:59 → SSU 04-10 06:38
PROVIDERS: ADMIT Internal Medicine; ATTEND Internal Medicine